=== PATIENT | female | born 1990 | race Caucasian/White ===

== ENCOUNTER 2023-10-06 09:02 | Outpatient (OUT) | payer OTHER, SELFPAY ==
[2023-10-06 09:36] LABS: Basophils Percent Auto 0.7 % (0.2-2.0); Eosinophils Percent Auto 0.7 % (0.9-7.0); Hematocrit 35.8 % (36.0-48.0); Hemoglobin 12.1 g/dL (12.0-16.0); Immature Granulocytes Abs Auto 0.01 10^3/uL (0.00-0.03); Immature Granulocytes Pct Auto 0.2 % (0.0-0.5); Lymphocytes Percent Auto 22.5 % (20.5-60.0); Mean Corpuscular HGB Conc 33.8 g/dL (29.9-35.2); Mean Corpuscular Hemoglobin 31.1 pg (26.7-34.0); Mean Platelet Volume 10.3 fL (9.5-13.5); Monocytes Absolute Auto 0.2 10^3/uL (0.3-0.8); Monocytes Percent Auto 4.4 % (1.7-12.0); Neutrophils Absolute Auto 3.1 10^3/uL (1.4-6.5); Neutrophils Percent Auto 71.5 % (43.0-75.0); Platelet Count 191 10^3/uL (150-450); Red Blood Count 3.89 10^6/uL (4.20-5.40); Red Cell Distribution Width 12.2 % (11.0-15.0); White Blood Count 4.3 10^3/uL (4.0-11.0)
[2023-10-06 10:09] LABS: Estimated Average Glucose 108 mg/dL; Glycohemoglobin A1C 5.4 % (4.5-6.2)
[2023-10-06 10:29] LABS: Alanine Aminotransferase 18 U/L (14-59); Albumin Globulin Ratio 1.2; Albumin Level 4.1 g/dL (3.4-5.0); Alkaline Phosphatase 65 U/L (46-116); Anion Gap 13.7; Aspartate Amino Transferase 13 U/L (15-37); BUN Creatinine Ratio 16.2; Bilirubin Total 0.5 mg/dL (0.2-1.0); Carbon Dioxide 24.8 mmol/L (21.0-32.0); Chloride 105 mmol/L (98-107); Chol HDL Ratio 2.4; Cholesterol 169 mg/dL (<=200); Estimated GFR (African America >60 (>=60); Estimated GFR (Non-African Ame 60 (>=60); Free T3 2.13 pg/mL (2.18-3.98); Globulin 3.5 g/dL; Glucose 91 mg/dL (74-106); HDL Cholesterol 70 mg/dL (40-60); Potassium 4.5 mmol/L (3.5-5.1); Sodium 139 mmol/L (136-145); Total Protein 7.6 g/dL (6.4-8.2); Triglycerides 32 mg/dL (<=150); VLDL CHOLESTEROL 6.4 mg/dL
[2023-10-08 12:07] LABS: Insulin 5.9 uIU/mL (2.6-24.9)
== END 2023-10-06 09:03 | disposition home or self-care (01) ==
PROVIDERS: PCP Nurse Practitioner Family; Visit Provider Nurse Practitioner Family
DX: Z00.00 Encounter for general adult medical examination without abnormal findings (principal)
CPT/HCPCS: 36415; 80053; 80061; 82306; 83036; 83525; 83540; 84436; 84443; 84481; 85025

== ENCOUNTER 2024-08-31 08:04 | Outpatient (OUT) | payer OTHER, SELFPAY ==
--- OUTSIDE RECORDS SUMMARY | 2024-08-31 08:07 | XMS_ITS | CCD ---
Author Organization [facility] Care Team Providers Care Billboard Erector Name Role Phone Christopher Ordaz Primary Care Physician JESUS THACKER Attending Unavailable KEDAR, JESUS Admitting Unavailable KEDAR, JESUS Primary Care Unavailable KEDAR, JESUS Consulting Unavailable JESUS THACKER Attending Unavailable KEDAR, JESUS Admitting Unavailable KEDAR, JESUS Primary Care Unavailable KEDAR, JESUS Consulting Unavailable KEDAR, JESUS Admitting Unavailable KEDAR, JESUS Primary Care Unavailable DR AILYN SWARTZ Consulting Unavailable KEDAR, JESUS Attending Unavailable JESUS THACKER Consulting Unavailable Medications Completed/Discontinued Medications Medication Drug Class(es) Dates Sig (Normalized) Sig (Original) levothyroxine sodium 0.05 mg oral tablet (1 source) l-Thyroxine Start: 09-28-2018 take 1 tablet by mouth once daily Synthroid 50 mcg Tab 50 microgram = 1 tab(s), Oral, Daily, Refills(s) 0 Start Date: 09/28/18 Status: Ordered Problems Active Problems Problem Classification Problem Date Documented Da te Episodic/Chronic Malaise and fatigue (4 sources) Other fatigue; Translations: [OTHER FATIGUE] Onset: 05-24-2022 Episodic Other complications of (1 source) Late entry into care 09-04-2009 Episodic Other skin disorders (1 source) Infection of sebaceous cyst 09-28-2018 Episodic Past or Other Problems Problem Classification Problem Date Documented Da te Episodic/Chronic Unclassified (1 source) Exposure to 2019 novel coronavirus; Translations: [Contact with and (suspected) exposure to COVID19] Results Test Name Value Interpretation Reference Range Facility US THYROIDon 05-25-2022 US THYROID EXAMINATION: US THYROID HISTORY: Fatigue COMPARISON: No relevant comparison available. TECHNIQUE: Sonographic images of the thyroid gland were obtained. FINDINGS: The right thyroid lobe is normal in size and contour with heterogeneous echotexture. No focal nodules. The right thyroid lobe measures 5.4 x 1.4 x 1.2 cm The thyroid isthmus measures 2.6 mm, heterogeneous. No focal nodule The left thyroid lobe is normal in size and contour with heterogeneous echotexture. No focal nodules. The left thyroid lobe measures 4.9 x 1.4 x 1.2 cm In the area the patient's pain left submandibular region, no focal abnormalities observed ultrasound IMPRESSION: Heterogeneous thyroid gland with no focal nodules No abnormality identified in the area of the patient's left submandibular pain Electronically authenticated by: AILYN SWARTZ Date: 2022-05-25 06:04 Normal [facility] INSULINon 05-23-2022 Insulin 7.5 uIU/mL Normal 2.6-24.9 [facility] Comment on above: Performed By: #### V ITB12, VITAD, IRON #### [facility] [address] [place] [address] Dr. Nakul Bush CBC AUTO DIFFon 05-21-2022 BASO # 0.0 103/ul Normal 0.0-0.1 [facility] Comment on above: Performed By: #### V ITB12, VITAD, IRON #### [facility] [address] [address] [address] Nakul Bush Basophils/100 WBC (Bld) 0.5 % Normal 0.2-2.0 [facility] Comment on above: Performed By: #### V ITB12, VITAD, IRON #### [facility] [address] [place] [address] Dr. Nakul Bush EO # 0.0 103/ul Normal 0.0-0.7 [facility] Comment on above: Performed By: #### V ITB12, VITAD, IRON #### [facility] [address] [address] [address] Nakul Bush Eosinophils/100 WBC (Bld) 0.8 % Critically low 0.9-7.0 [facility] Comment on above: Performed By: #### V ITB12, VITAD, IRON #### [facility] [address] [place] [address] Dr. Nakul Bush Erythrocyte distribution width (RBC) [Ratio] 13.6 % Normal 11.0-15.0 [facility] Comment on above: Performed By: #### V ITB12, VITAD, IRON #### [facility] [address] [place] [address] Dr. Nakul Bush Hematocrit (Bld) [Volume fraction] 32.2 % Critically low 36.0-48.0 [facility] Comment on above: Performed By: #### V ITB12, VITAD, IRON #### [facility] [address] [place] [address] Dr. Nakul Bush Hemoglobin (Bld) [Mass/Vol] 11.3 g/dL Critically low 12.0-16.0 [facility] Comment on above: Performed By: #### V ITB12, VITAD, IRON #### [facility] [address] [place] [address] Dr. Nakul Bush IG # 0.01 10e3/ul Normal 0.00-0.03 [facility] Comment on above: Performed By: #### V ITB12, VITAD, IRON #### [facility] [address] [place] [address] Dr. Nakul Bush IG % 0.3 % Normal 0.0-0.5 [facility] Comment on above: Performed By: #### V ITB12, VITAD, IRON #### [facility] [address] [place] [address] Dr. Nakul Bush LYMPH # 1.2 103/ul Normal 1.2-3.8 [facility] Comment on above: Performed By: #### V ITB12, VITAD, IRON #### [facility] [address] [place] [address] Dr. Nakul Bush Lymphocytes/100 WBC (Bld) 31.2 % Normal 20.5-60.0 [facility] Comment on above: Performed By: #### V ITB12, VITAD, IRON #### [facility] [address] [place] [address] Dr. Nakul Bush MANUAL DIFF REQ NO Normal [facility] Comment on above: Performed By: #### V ITB12, VITAD, IRON #### [facility] [address] [place] [address] Dr. Nakul Bush MCH (RBC) [Entitic mass] 29.4 pg Normal 26.7-34.0 [facility] Comment on above: Performed By: #### V ITB12, VITAD, IRON #### [facility] [address] [place] [address] Dr. Nakul Bush MCHC (RBC) [Mass/Vol] 35.1 g/dL Normal 29.9-35.2 [facility] Comment on above: Performed By: #### V ITB12, VITAD, IRON #### [facility] [address] [place] [address] Dr. Nakul Bush MCV (RBC) [Entitic vol] 83.6 fL Normal 81.0-99.0 [facility] Comment on above: Performed By: #### V ITB12, VITAD, IRON #### [facility] [address] [place] [address] Dr. Nakul Bush MONO # 0.3 103/ul Normal 0.3-0.8 [facility] Comment on above: Performed By: #### V ITB12, VITAD, IRON #### [facility] [address] [place] [address] Dr. Nakul Bush Monocytes/100 WBC (Bld) 7.3 % Normal 1.7-12.0 [facility] Comment on above: Performed By: #### V ITB12, VITAD, IRON #### [facility] [address] [place] [address] Dr. Nakul Bush NEUT # 2.2 103/ul Normal 1.4-6.5 [facility] Comment on above: Performed By: #### V ITB12, VITAD, IRON #### [facility] [address] [place] [address] Dr. Nakul Bush Neutrophils/100 WBC (Bld) 59.9 % Normal 43.0-75.0 [facility] Comment on above: Performed By: #### V ITB12, VITAD, IRON #### [facility] [address] [address] [address] Nakul Bush Platelet mean volume (Bld) [Entitic vol] 10.5 fL Normal 9.5-13.5 [facility] Comment on above: Performed By: #### V ITB12, VITAD, IRON #### [facility] [address] [address] [address] Nakul Bush PLT 178 103/ul Normal 150-450 [facility] Comment on above: Performed By: #### V ITB12, VITAD, IRON #### [facility] [address] [address] [address] Nakul Bush RBC 3.85 106/ul Critically low 4.20-5.40 [facility] Comment on above: Performed By: #### V ITB12, VITAD, IRON #### [facility] [address] [place] [address] Dr. Nakul Bush WBC 3.7 103/ul Critically low 4.0-11.0 [facility] Comment on above: Performed By: #### V ITB12, VITAD, IRON #### [facility] [address] [address] [address] Nakul Bush FREE THYROXINE INDEX T7on FTI 3.00 Normal 1.30-4.50 [facility] Comment on above: Performed By: #### V ITB12, VITAD, IRON #### [facility] [address] [address] [address] Nakul Bush T3U 37.0 % Normal 30.0-39.0 [facility] Comment on above: Performed By: #### V ITB12, VITAD, IRON #### [facility] [address] [address] [address] Nakul Bush T4 [Mass/Vol] 8.10 ug/dL Normal 4.80-13.90 [facility] Comment on above: Performed By: #### V ITB12, VITAD, IRON #### [facility] [address] [place] [address] Dr. Nakul Bush GLYCOHEMOGLOBIN A1Con 2022 ADA RECOMMENDATION SEE BELOW Normal [facility] Comment on above: Result Comment: ADA RECOMMENDED LIMIT 4.0 - 6.0 ADA THERAPEUTIC TARGET < 7.0 ACTION SUGGESTED > 7.0 Performed By: #### V ITB12, VITAD, IRON #### [facility] [address] [address] [address] Nakul Bush Glucose [Mass/Vol] 103 mg/dL Normal [facility] Comment on above: Performed By: #### V ITB12, VITAD, IRON #### [facility] [address] [address] [address] Nakul Bush HbA1c (Bld) [Mass fraction] 5.2 % Normal 4.5-6.2 [facility] Comment on above: Performed By: #### V ITB12, VITAD, IRON #### [facility] [address] [place] [address] Dr. Nakul Bush IRONon 05-21-2022 Iron [Mass/Vol] 37.0 ug/dL Critically low 50.0-170.0 [facility] Comment on above: Performed By: #### V ITB12, VITAD, IRON #### [facility] [address] [place] [address] Dr. Nakul Bush LIPID PROFILEon 05-21-2022 CHOL-HDL RATIO NORM SEE BELOW Normal [facility] Comment on above: Result Comment: 3.3 - 4.4 LOW RISK 4.4 - 7.1 AVERAGE RISK 7.1 - 11.0 MODERATE RISK >11.0 HIGH RISK Performed By: #### V ITB12, VITAD, IRON #### [facility] [address] [place] [address] Dr. Nakul Bush Cholesterol [Mass/Vol] 160 mg/dL Normal <=200 [facility] Comment on above: Performed By: #### V ITB12, VITAD, IRON #### [facility] [address] [address] [address] Nakul Bush Cholesterol in HDL [Mass/Vol] 73 mg/dL Critically high 40-60 [facility] Comment on above: Performed By: #### V ITB12, VITAD, IRON #### [facility] [address] [address] [address] Nakul Bush Cholesterol in LDL [Mass/Vol] 76.4 mg/dL Normal [facility] Comment on above: Performed By: #### V ITB12, VITAD, IRON #### [facility] [address] [address] [address] Nakul Bush Cholesterol.total/Ch olesterol in HDL [Mass ratio] 2.2 {ratio} Normal [facility] Comment on above: Performed By: #### V ITB12, VITAD, IRON #### [facility] [address] [address] [address] Nakul Bush HDL NORMAL > or = 60 mg/dl - LOW CARDIOVASCULAR RISK <40 mg/dl - HIGH CARDIOVASCULAR RISK Normal [facility] Comment on above: Performed By: #### V ITB12, VITAD, IRON #### [facility] [address] [address] [address] Nakul Bush LDL CALC NORMAL SEE BELOW Normal [facility] Comment on above: Result Comment: <100 mg/dl OPTIMAL 100 - 129 mg/dl NEAR OR ABOVE OPTIMAL 130 - 159 mg/dl BORDERLINE HIGH 160 - 189 mg/dl HIGH >190 mg/dl VERY HIGH Performed By: #### V ITB12, VITAD, IRON #### [facility] [address] [place] [address] Dr. Nakul Bush Triglyceride [Mass/Vol] 53 mg/dL Normal <=150 [facility] Comment on above: Performed By: #### V ITB12, VITAD, IRON #### [facility] [address] [address] [address] Nakul Bush VLDL CALC 10.6 mg/dL Normal [facility] Comment on above: Performed By: #### V ITB12, VITAD, IRON #### [facility] [address] [address] [address] Nakul Bush PROF 14(COMP METB)on 023 Albumin [Mass/Vol] 4.0 g/dL Normal 3.4-5.0 [facility] Comment on above: Performed By: #### T 7, CMP, LIPID, TSH #### [facility] [address] [address] [address] Nakul Bush Albumin/Globulin [Mass ratio] 1.1 {ratio} Normal [facility] Comment on above: Performed By: #### T 7, CMP, LIPID, TSH #### [facility] [address] [address] [address] Nakul Bush ALP [Catalytic activity/Vol] 69 U/L Normal 46-116 [facility] Comment on above: Performed By: #### T 7, CMP, LIPID, TSH #### [facility] [address] [place] [address] Dr. Nakul Bush ALT [Catalytic activity/Vol] 22 U/L Normal 14-59 [facility] Comment on above: Performed By: #### T 7, CMP, LIPID, TSH #### [facility] [address] [place] [address] Dr. Nakul Bush Anion gap [Moles/Vol] 14.9 mmol/L Normal [facility] Comment on above: Performed By: #### T 7, CMP, LIPID, TSH #### [facility] [address] [place] [address] Dr. Nakul Bush AST [Catalytic activity/Vol] 18 U/L Normal 15-37 [facility] Comment on above: Performed By: #### T 7, CMP, LIPID, TSH #### [facility] [address] [place] [address] Dr. Nakul Bush Bilirubin [Mass/Vol] 0.5 mg/dL Normal 0.2-1.0 [facility] Comment on above: Performed By: #### T 7, CMP, LIPID, TSH #### [facility] [address] [place] [address] Dr. Nakul Bush Calcium [Mass/Vol] 9.0 mg/dL Normal 8.5-10.1 [facility] Comment on above: Performed By: #### T 7, CMP, LIPID, TSH #### [facility] [address] [place] [address] Dr. Nakul Bush Chloride [Moles/Vol] 104 mmol/L Normal 98-107 [facility] Comment on above: Performed By: #### T 7, CMP, LIPID, TSH #### [facility] [address] [address] [address] Nakul Bush CO2 [Moles/Vol] 24.5 mmol/L Normal 21.0-32.0 [facility] Comment on above: Performed By: #### T 7, CMP, LIPID, TSH #### [facility] [address] [address] [address] Nakul Bush Creatinine [Mass/Vol] 0.99 mg/dL Normal 0.55-1.02 [facility] Comment on above: Performed By: #### T 7, CMP, LIPID, TSH #### [facility] [address] [address] [address] Nakul Bush EGFR-AF MALAYSIAN >60 Normal >=60 [facility] Comment on above: Performed By: #### T 7, CMP, LIPID, TSH #### [facility] [address] [address] [address] Nakul Bush EGFR-NON AF MALAYSIAN >60 Normal >=60 [facility] Comment on above: Performed By: #### T 7, CMP, LIPID, TSH #### [facility] [address] [address] [address] Nakul Bush Globulin (S) [Mass/Vol] 3.5 g/dL Normal [facility] Comment on above: Performed By: #### T 7, CMP, LIPID, TSH #### [facility] [address] [address] [address] Nakul Bush Glucose [Mass/Vol] 86 mg/dL Normal 74-106 [facility] Comment on above: Performed By: #### T 7, CMP, LIPID, TSH #### [facility] [address] [address] [address] Nakul Bush Potassium [Moles/Vol] 4.4 mmol/L Normal 3.5-5.1 [facility] Comment on above: Performed By: #### T 7, CMP, LIPID, TSH #### [facility] [address] [place] [address] Dr. Nakul Bush Protein [Mass/Vol] 7.5 g/dL Normal 6.4-8.2 [facility] Comment on above: Performed By: #### T 7, CMP, LIPID, TSH #### [facility] [address] [place] [address] Dr. Nakul Bush Sodium [Moles/Vol] 139 mmol/L Normal 136-145 [facility] Comment on above: Performed By: #### T 7, CMP, LIPID, TSH #### [facility] [address] [place] [address] Dr. Nakul Bush Urea nitrogen [Mass/Vol] 16.0 mg/dL Normal 7.0-18.0 [facility] Comment on above: Performed By: #### T 7, CMP, LIPID, TSH #### [facility] [address] [place] [address] Dr. Nakul Bush Urea nitrogen/Creatinine [Mass ratio] 16.2 mg/mg Normal [facility] Comment on above: Performed By: #### T 7, CMP, LIPID, TSH #### [facility] [address] [place] [address] Dr. Nakul Bush TSHon 05-21-2022 TSH 1.813 uIU/mL Normal 0.358-3.740 [facility] Comment on above: Performed By: #### V ITB12, VITAD, IRON #### [facility] [address] [place] [address] Dr. Nakul Bush VITAMIN B12on 05-21-2022 Cobalamin (Vitamin B12) [Mass/Vol] 830.0 pg/mL Normal 193.0-986.0 [facility] Comment on above: Performed By: #### V ITB12, VITAD, IRON #### [facility] [address] [place] [address] Dr. Nakul Bush VITAMIN D 25 OHon 05-21-2022 VIT D 25-OH 24.9 ng/mL Normal [facility] Comment on above: Performed By: #### V ITB12, VITAD, IRON #### [facility] [address] [place] [address] Dr. Nakul Bush VIT D RANGES SEE BELOW Normal [facility] Comment on above: Result Comment: <20 ng/mL Vit D deficient 20 - <30 ng/mL Vit D insufficient 30 - 100 ng/mL Vit D sufficient >100 ng/mL Potential Toxicity Performed By: #### V ITB12, VITAD, IRON #### [facility] [address] [place] [address] Dr. Nakul Bush CULTURE URINEon 08-23-2021 CULTURE URINE Isolate 1 Escherichia coli >100,000 cfu/ml of ORGANISM 1 Escherichia coli ANTIBIOTIC M.I.C RX STATUS Ampicillin 4 S F Ampicillin/Sulbacta m <=2 S F Piperacillin/Tazoba ctam <=4 S F Cefazolin <=4 S F Ceftazidime <=1 S F Ceftriaxone <=1 S F Ertapenem <=0.5 S F Imipenem <=0.25 S F Amikacin <=2 S F Gentamicin <=1 S F Tobramycin <=1 S F Ciprofloxacin <=0.25 S F Levofloxacin <=0.12 S F Nitrofurantoin <=16 S F Trimethoprim/Sulfam ethoxazole <=20 S F Normal [facility] Comment on above: Performed By: #### U RCX #### [facility] [address] [place] [address] Dr. Nakul Bush CBC AUTO DIFFon 08-21-2021 BASO # 0.0 103/ul Normal 0.0-0.1 [facility] Comment on above: Performed By: #### V ITB12, VITAD, IRON #### [facility] [address] [place] [address] Dr. Nakul Bush Basophils/100 WBC (Bld) 0.4 % Normal 0.2-2.0 [facility] Comment on above: Performed By: #### V ITB12, VITAD, IRON #### [facility] [address] [place] [address] Dr. Nakul Bush EO # 0.1 103/ul Normal 0.0-0.7 [facility] Comment on above: Performed By: #### V ITB12, VITAD, IRON #### [facility] [address] [place] [address] Dr. Nakul Bush Eosinophils/100 WBC (Bld) 1.4 % Normal 0.9-7.0 [facility] Comment on above: Performed By: #### V ITB12, VITAD, IRON #### [facility] [address] [place] [address] Dr. Nakul Bush Erythrocyte distribution width (RBC) [Ratio] 12.4 % Normal 11.0-15.0 [facility] Comment on above: Performed By: #### V ITB12, VITAD, IRON #### [facility] [address] [place] [address] Dr. Nakul Bush Hematocrit (Bld) [Volume fraction] 38.0 % Normal 36.0-48.0 [facility] Comment on above: Performed By: #### V ITB12, VITAD, IRON #### [facility] [address] [place] [address] Dr. Nakul Bush Hemoglobin (Bld) [Mass/Vol] 12.2 g/dL Normal 12.0-16.0 [facility] Comment on above: Performed By: #### V ITB12, VITAD, IRON #### [facility] [address] [place] [address] Dr. Nakul Bush IG # 0.01 10e3/ul Normal 0.00-0.03 [facility] Comment on above: Performed By: #### V ITB12, VITAD, IRON #### [facility] [address] [place] [address] Dr. Nakul Bush IG % 0.2 % Normal 0.0-0.5 [facility] Comment on above: Performed By: #### V ITB12, VITAD, IRON #### [facility] [address] [place] [address] Dr. Nakul Bush LYMPH # 1.7 103/ul Normal 1.2-3.8 [facility] Comment on above: Performed By: #### V ITB12, VITAD, IRON #### [facility] [address] [place] [address] Dr. Nakul Bush Lymphocytes/100 WBC (Bld) 33.2 % Normal 20.5-60.0 [facility] Comment on above: Performed By: #### V ITB12, VITAD, IRON #### [facility] [address] [place] [address] Dr. Nakul Bush MANUAL DIFF REQ NO Normal [facility] Comment on above: Performed By: #### V ITB12, VITAD, IRON #### [facility] [address] [place] [address] Dr. Nakul Bush MCH (RBC) [Entitic mass] 29.6 pg Normal 26.7-34.0 [facility] Comment on above: Performed By: #### V ITB12, VITAD, IRON #### [facility] [address] [place] [address] Dr. Nakul Bush MCHC (RBC) [Mass/Vol] 32.1 g/dL Normal 29.9-35.2 [facility] Comment on above: Performed By: #### V ITB12, VITAD, IRON #### [facility] [address] [place] [address] Dr. Nakul Bush MCV (RBC) [Entitic vol] 92.2 fL Normal 81.0-99.0 [facility] Comment on above: Performed By: #### V ITB12, VITAD, IRON #### [facility] [address] [place] [address] Dr. Nakul Bush MONO # 0.4 103/ul Normal 0.3-0.8 [facility] Comment on above: Performed By: #### V ITB12, VITAD, IRON #### [facility] [address] [place] [address] Dr. Nakul Bush Monocytes/100 WBC (Bld) 7.6 % Normal 1.7-12.0 [facility] Comment on above: Performed By: #### V ITB12, VITAD, IRON #### [facility] [address] [place] [address] Dr. Nakul Bush NEUT # 2.9 103/ul Normal 1.4-6.5 [facility] Comment on above: Performed By: #### V ITB12, VITAD, IRON #### [facility] [address] [place] [address] Dr. Nakul Bush Neutrophils/100 WBC (Bld) 57.2 % Normal 43.0-75.0 [facility] Comment on above: Performed By: #### V ITB12, VITAD, IRON #### [facility] [address] [place] [address] Dr. Nakul Bush Platelet mean volume (Bld) [Entitic vol] 10.9 fL Normal 9.5-13.5 [facility] Comment on above: Performed By: #### V ITB12, VITAD, IRON #### [facility] [address] [place] [address] Dr. Nakul Bush PLT 220 103/ul Normal 150-450 [facility] Comment on above: Performed By: #### V ITB12, VITAD, IRON #### [facility] [address] [place] [address] Dr. Nakul Bush RBC 4.12 106/ul Critically low 4.20-5.40 [facility] Comment on above: Performed By: #### V ITB12, VITAD, IRON #### [facility] [address] [place] [address] Dr. Nakul Bush WBC 5.1 103/ul Normal 4.0-11.0 [facility] Comment on above: Performed By: #### V ITB12, VITAD, IRON #### [facility] [address] [place] [address] Dr. Nakul Bush GLYCOHEMOGLOBIN A1Con 2021 ADA RECOMMENDATION SEE BELOW Normal [facility] Comment on above: Result Comment: ADA RECOMMENDED LIMIT 4.0 - 6.0 ADA THERAPEUTIC TARGET < 7.0 ACTION SUGGESTED > 7.0 Performed By: #### A 1C #### [facility] [address] [place] [address] Dr. Nakul Bush Glucose [Mass/Vol] 105 mg/dL Normal [facility] Comment on above: Performed By: #### A 1C #### [facility] [address] [address] [address] Nakul Bush HbA1c (Bld) [Mass fraction] 5.3 % Normal 4.5-6.2 [facility] Comment on above: Performed By: #### A 1C #### [facility] [address] [address] [address] Nakul Bush LIPID PROFILEon 08-21-2021 CHOL-HDL RATIO NORM SEE BELOW Normal [facility] Comment on above: Result Comment: 3.3 - 4.4 LOW RISK 4.4 - 7.1 AVERAGE RISK 7.1 - 11.0 MODERATE RISK >11.0 HIGH RISK Performed By: #### C MP, TSH, LIPID #### [facility] [address] [address] [address] Nakul Bush Cholesterol [Mass/Vol] 167 mg/dL Normal <=200 [facility] Comment on above: Performed By: #### C MP, TSH, LIPID #### [facility] [address] [address] [address] Nakul Bush Cholesterol in HDL [Mass/Vol] 63 mg/dL Critically high 40-60 [facility] Comment on above: Performed By: #### C MP, TSH, LIPID #### [facility] [address] [address] [address] Nakul Bush Cholesterol in LDL [Mass/Vol] 87.4 mg/dL Normal [facility] Comment on above: Performed By: #### C MP, TSH, LIPID #### [facility] [address] [address] [address] Nakul Bush Cholesterol.total/Ch olesterol in HDL [Mass ratio] 2.7 {ratio} Normal [facility] Comment on above: Performed By: #### C MP, TSH, LIPID #### [facility] [address] [place] [address] Dr[address] Nakul Bush HDL NORMAL > or = 60 mg/dl - LOW CARDIOVASCULAR RISK <40 mg/dl - HIGH CARDIOVASCULAR RISK Normal [facility] Comment on above: Performed By: #### C MP, TSH, LIPID #### [facility] [address] [address] [address] Nakul Bush LDL CALC NORMAL SEE BELOW Normal [facility] Comment on above: Result Comment: <100 mg/dl OPTIMAL 100 - 129 mg/dl NEAR OR ABOVE OPTIMAL 130 - 159 mg/dl BORDERLINE HIGH 160 - 189 mg/dl HIGH >190 mg/dl VERY HIGH Performed By: #### C MP, TSH, LIPID #### [facility] [address] [address] [address] Nakul Bush Triglyceride [Mass/Vol] 83 mg/dL Normal <=150 [facility] Comment on above: Performed By: #### C MP, TSH, LIPID #### [facility] [address] [place] [address] Dr. Nakul Bush VLDL CALC 16.6 mg/dL Normal [facility] Comment on above: Performed By: #### C MP, TSH, LIPID #### [facility] [address] [address] [address] Nakul Bush PROF 14(COMP METB)on 022 Albumin [Mass/Vol] 4.0 g/dL Normal 3.4-5.0 [facility] Comment on above: Performed By: #### C MP, TSH, LIPID #### [facility] [address] [address] [address] Nakul Bush Albumin/Globulin [Mass ratio] 1.1 {ratio} Normal [facility] Comment on above: Performed By: #### C MP, TSH, LIPID #### [facility] [address] [address] [address] Nakul Bush ALP [Catalytic activity/Vol] 70 U/L Normal 46-116 [facility] Comment on above: Performed By: #### C MP, TSH, LIPID #### [facility] [address] [address] [address] Nakul Bush ALT [Catalytic activity/Vol] 19 U/L Normal 14-59 [facility] Comment on above: Performed By: #### C MP, TSH, LIPID #### [facility] [address] [address] [address] Nakul Bush Anion gap [Moles/Vol] 13.0 mmol/L Normal [facility] Comment on above: Performed By: #### C MP, TSH, LIPID #### [facility] [address] [address] [address] Nakul Bush AST [Catalytic activity/Vol] 15 U/L Normal 15-37 [facility] Comment on above: Performed By: #### C MP, TSH, LIPID #### [facility] [address] [address] [address] Nakul Bush Bilirubin [Mass/Vol] 0.3 mg/dL Normal 0.2-1.0 [facility] Comment on above: Performed By: #### C MP, TSH, LIPID #### [facility] [address] [place] [address] Dr. Nakul Bush Calcium [Mass/Vol] 8.4 mg/dL Critically low 8.5-10.1 [facility] Comment on above: Performed By: #### C MP, TSH, LIPID #### [facility] [address] [address] [address] Nakul Bush Chloride [Moles/Vol] 103 mmol/L Normal 98-107 [facility] Comment on above: Performed By: #### C MP, TSH, LIPID #### [facility] [address] [address] [address] Nakul Bush CO2 [Moles/Vol] 24.5 mmol/L Normal 21.0-32.0 [facility] Comment on above: Performed By: #### C MP, TSH, LIPID #### [facility] [address] [place] [address] Dr. Nakul Bush Creatinine [Mass/Vol] 1.04 mg/dL Critically high 0.55-1.02 [facility] Comment on above: Performed By: #### C MP, TSH, LIPID #### [facility] [address] [address] [address] Nakul Bush EGFR-AF MALAYSIAN >60 Normal >=60 [facility] Comment on above: Performed By: #### C MP, TSH, LIPID #### [facility] [address] [address] [address] Nakul Bush EGFR-NON AF MALAYSIAN >60 Normal >=60 [facility] Comment on above: Performed By: #### C MP, TSH, LIPID #### [facility] [address] [address] [address] Nakul Bush Globulin (S) [Mass/Vol] 3.6 g/dL Normal [facility] Comment on above: Performed By: #### C MP, TSH, LIPID #### [facility] [address] [address] [address] Nakul Bush Glucose [Mass/Vol] 87 mg/dL Normal 74-106 [facility] Comment on above: Performed By: #### C MP, TSH, LIPID #### [facility] [address] [place] [address] Dr. Nakul Bush Potassium [Moles/Vol] 4.5 mmol/L Normal 3.5-5.1 [facility] Comment on above: Performed By: #### C MP, TSH, LIPID #### [facility] [address] [address] [address] Nakul Bush Protein [Mass/Vol] 7.6 g/dL Normal 6.1-8.2 [facility] Comment on above: Performed By: #### C MP, TSH, LIPID #### [facility] [address] [address] [address] Nakul Bush Sodium [Moles/Vol] 136 mmol/L Normal 136-145 [facility] Comment on above: Performed By: #### C MP, TSH, LIPID #### [facility] [address] [address] [address] Nakul Bush Urea nitrogen [Mass/Vol] 21.0 mg/dL Critically high 7.0-18.0 [facility] Comment on above: Performed By: #### C MP, TSH, LIPID #### [facility] [address] [address] [address] Nakul Bush Urea nitrogen/Creatinine [Mass ratio] 20.2 mg/mg Normal [facility] Comment on above: Performed By: #### C MP, TSH, LIPID #### [facility] [address] [place] [address] Dr. Nakul Bush TSHon 08-21-2021 TSH 3.508 uIU/mL Normal 0.470-4.[address] [facility] Comment on above: Performed By: #### C MP, TSH, LIPID #### [facility] [address] [place] [address] Dr. Nakul Bush TSH RANGE SEE BELOW Normal [facility] Comment on above: Result Comment: <0.3 4 UIU/ml HYPERTHYROID 0.34-5.60 UIU/ml EUTHYROID >5.60 UIU/ml HYPOTHYROID Performed By: #### C MP, TSH, LIPID #### [facility] [address] [place] [address] Dr. Nakul Bush UA RANDOM W/MICROSCOPICon BACTERIA LARGE Abnormal NONE SEEN [facility] Comment on above: Performed By: #### V ITB12, VITAD, IRON #### [facility] [address] [place] [address] Dr. Nakul Bush Bilirubin Ql (U) Negative Normal NEGATIVE [facility] Comment on above: Performed By: #### V ITB12, VITAD, IRON #### [facility] [address] [place] [address] Dr. Nakul Bush CAST NONE SEEN Normal NONE SEEN [facility] Comment on above: Performed By: #### V ITB12, VITAD, IRON #### [facility] [address] [place] [address] Dr. Nakul Bush Clarity (U) CLEAR Normal CLEAR [facility] Comment on above: Performed By: #### V ITB12, VITAD, IRON #### [facility] [address] [place] [address] Dr. Nakul Bush Color (U) LT. YELLOW Normal YELLOW [facility] Comment on above: Performed By: #### V ITB12, VITAD, IRON #### [facility] [address] [place] [address] Dr. Nakul Bush Crystals LM Nom (Urine sed) NONE SEEN Normal NONE SEEN [facility] Comment on above: Performed By: #### V ITB12, VITAD, IRON #### [facility] [address] [address] [address] Nakul Bush Epithelial cells LM Ql (Urine sed) FEW Abnormal NONE SEEN /RARE [facility] Comment on above: Performed By: #### V ITB12, VITAD, IRON #### [facility] [address] [address] [address] Nakul Bush Glucose Ql (U) Negative Normal NEGATIVE [facility] Comment on above: Performed By: #### V ITB12, VITAD, IRON #### [facility] [address] [place] [address] Dr. Nakul Bush Hemoglobin Ql (U) Negative Normal NEGATIVE [facility] Comment on above: Performed By: #### V ITB12, VITAD, IRON #### [facility] [address] [address] [address] Nakul Bush Ketones Ql (U) Negative Normal NEGATIVE [facility] Comment on above: Performed By: #### V ITB12, VITAD, IRON #### [facility] [address] [place] [address] Dr. Nakul Bush LEUKOCYTES TRACE Abnormal NEGATIVE [facility] Comment on above: Performed By: #### V ITB12, VITAD, IRON #### [facility] [address] [place] [address] Dr. Nakul Bush MUCOUS TRACE Abnormal NONE SEEN [facility] Comment on above: Performed By: #### V ITB12, VITAD, IRON #### [facility] [address] [address] [address] Nakul Bush Nitrite Ql (U) Positive Abnormal NEGATIVE [facility] Comment on above: Performed By: #### V ITB12, VITAD, IRON #### [facility] [address] [place] [address] Dr. Nakul Bush pH (U) 6.5 [pH] Normal 5-9 [facility] Comment on above: Performed By: #### V ITB12, VITAD, IRON #### [facility] [address] [address] [address] Nakul Bush RBC 0-2 Normal 0-2 [facility] Comment on above: Performed By: #### V ITB12, VITAD, IRON #### [facility] [address] [address] [address] Nakul Bush SPEC GRAVITY 1.010 Normal 1.005-<=1.025 [facility] Comment on above: Performed By: #### V ITB12, VITAD, IRON #### [facility] [address] [address] [address] Nakul Bush UA PROTEIN Negative Normal NEGATIVE/ TRACE [facility] Comment on above: Performed By: #### V ITB12, VITAD, IRON #### [facility] [address] [address] [address] Nakul Bush Urobilinogen Qn (U) 0.2 {Shakir'U}/dL Normal 0.2 - 1. 0 [facility] Comment on above: Performed By: #### V ITB12, VITAD, IRON #### [facility] [address] [address] [address] Nakul Bush WBC 2-5 Abnormal NONE SEEN [facility] Comment on above: Performed By: #### V ITB12, VITAD, IRON #### [facility] [address] [address] [address] Nakul Bush Coding Summary.on 05-18-2021 Coding Summary. CD:[id number] KSr6xWe+PGhlYWQ+PE1 EAAKyQ35mfEChnF2GD6 uISR9YFYVPCGCGDB7NM K9fkQM6NIamQ3PyqsVg DwgmbDOzKQ91QLn0OEE 8pYqqMAdgsT7xrPMpP6 m3RlPpDL83sF35SKdpF JUdBsQ8RcBtqyasiQQk S4osNlJzaIBgHjg+PHR hYmxlIHdpZHRoPScxMD AmNgBduEfaKP4kRh0pL GVyLWNvbGxhcHNlOiBj g1qoXAYtFSriXK8tfLf fG8UyfXJ3SSLom1k0Ee 48dHI+CLHsRXO3rAalZ Yoqt151KbOmg1juJNH3 nLRrJBacGTU5P16zn3T 5FSHfMHDiJPV4eOZ9sI 4ouPtlvqmdS2ElnTXyR dX7LSD9bYKzyI8ojXqt eizajS3wEmo+A27IPF9 BIQVQBT6JEri4J6ZzBx wvdHI+KR50QPQhPQ93q YUuhTFjq1erlEd5DwLi OCGmRWT5yPslIXhuc6K wLZEdX81xyNTxi7J3ZW CivGdykBKqBrGwkIU6q W5mRQxjnnoql6tvxuyd Ltxef1gtuh01eA28X33 bTPrlERIwITM2GGHlUS DgoAvzkk6pnI0yYk7+I Wksx5xim5mvuDz7ZuDw XWWncmMwpOlfGEO0g3Z nZo98G6QitIfkb9NrOf e1go58rFWif4J9mYV3R ZcqSFEymP0wBDybMgW9 JRDxFrPmqP08wEYnTDp kWs9cdWznoRylIW1yOY XszielYFOefH1iGUNyv HFfdTrxXF0zRGPidhds f810XuJvJZC1EQSpoGQ sL4HwsD7lCjPhIVOwYI VgO2XwkIDxKIxtP794T BanAyO6OZHwxcZsR6Ea AVSdsYpbLjR0w1Z1Mu6 Gs6MazcmqTOU4EBebKK GaFdJ9QwGwAeM3M1YdX ih6UZVdpLcuBX2aR1Oz VQXctneegazryHF1YQJ iDHGaaT01tLXzEYqpNq 3sf7C1l242MRUhWTRie Z77Gi6jnTefUUOypUKS lV8fbanak5zxcoccMhV nHZPeAYk6KEe1UZOduL oiWcZnNIZ9QnO0JCI8a TPtgT9nwGmfdngutW1t Oyc+D77fvF1qSOM2QDI 6pvcnNDMgvoEoUA21MA 96U5HxBfnhnWNdeVL+P XDoaaJoqQwsRM4bLnEh a2gfz5AcDCjyP5BuCKT lLQkxVhc5IWTdBWK3cN B5nU8vFHQqIFkct9F7l VW8P8XjcyMais5xk3hq WQFzTRxgS79naORzi2Z 5UHRzuAV1ZSUjxAvyIh JvcK63Wjo+PGNvbGdyb 2DoVjqqr5wzo8mpiOz7 IjMwJSIgdmFsaWduPSJ 2j2WpEq37Z56uNXxiIF RoPSIxNSUiIHZhbGlnb a6nmA4hJj3+PGNvbCB3 rWV9jV4zACMmDnC7SMo xZ297ClEpwRFaWmqdo1 dho7byzLq0ZvBaRFKgr hSgcBlnFRV9j8OcCl21 G19jJYazNGOpRGLfLJH mZGNuzCnxfz3orQ7uWv 8+NE6oj4ewlg62eX77i HI+WWVmQYN4nJitVWez XWJfwS3vHLssHxI1RTY zLwGdbN67iKCgBYhxLm 5tqNbvgRqlZB2ySAPna fgeg088KtPzu5qjVASg iCFjUEemNLY0T03li6E 7BENaXCUfQXV8gLF1xL 1hbGlnbjogbGVmdDsgd iWfcJkwWCgmWMluQ969 IHRvcDsnPlBhdGllbnQ yIgWeIMi4L7EqRwp3DK PkgFfxOR1lhSHfWCyxM x3wmCzdvEgnCB6xHWAd cbsov470VoRvq4daYYF asAJmPEnpTUO3B06yy0 Z2NBCsTOEfITY8pWR8l J3mnYedfoncyRSncMbl lgHnxXsgCRkbQJizF32 6IHRvcDsnPkJpcnRoIE SueDK1VF41LR35kQJuo 4O6hZD9D6NxBYFuyzzh kuijpBW0JKCaRLFjmD2 3Gt7lnSgsBn2oOZMuDQ T5ZBHecICbR9WogN7mE iLlWFEuJTUyF0MtlSNe EYgbM248PUvbZuP3RJM bytJkU5IrGLIfaIglTh U7j3Y5Df4DS5L4LS57B S96xGFzf3S6dFT1C9Bn FMCyreoizmuyqUS9QYH yMUFqlV74Ll9ujYzyOz 5vNANrRTF2HHNfhEDkX 5LweU1rNpWwFXAaFGPz G1FgqUIyBEobI127URr sJzW0SXTzpmCtS0MdDO TvxNqtSdS4t4N9Nn3YB Ia2HD04EM30wSSug0S9 tLH0C9HcICAwntedbhx ecLV3HLWbPTYhfV50Fb 5uiYwcFq9rXZQpUGL5V FTywOLmP5OdxS1jPvQo CRFyXDUpQ2OndIPwVKr fL817CPzyGeE9JCIvia JcX5WjNUOnbUxtApR5i 4R9Iz1KRZQtBU03FPB3 yGH3GO21GM60W5CoEvm vdGFibGU+PHRhYmxlIH dpZHRoPScxMDAlJyBzd YieQJ1pGp3tHNMyGPQt dWizgIFwSkEkt3qnWBQ rYAwpSS5ziAjlW5SujR I9ZDNhn2e3Ez80T35dK 3JvdXA+FPEovCP4xTR5 gL4pPoKwLxD2WJbaH74 1UsQfgARiWngct1dir6 zdqFs1QsR5NZCfjeQiy QqlWKI3c5CaXn45Z83h IHdpZHRoPSIxNSUiIHZ rcCkxtu8ixG7iPp9+PG ParUA1bOT5aD7hXkNfX sG8JRqdS868HiUzoOQm Yolrz5ruv1vmkRg1RaL yCOWgnwBwcAqxWLN7t9 FfTk97P2LmgTynb9ZxR aw2qb05lEIrl7D2pFY7 I0FqYTVwkgmwqWFifJo dJY3qDOOukoasBQBwqB 8yUVPxF1u3DbIyEuV2G KpuL1GhqcR5MFQyjBOv SHcoVLZ9M64op5Q1CDF xWGAsNGR0kUV5qI1drI lnbjogbGVmdDsgdmVyd AorLTkvWVgbI744CPFi kKdbGZGkcW3rZUAkoEX mhCnlMR5lSQHhedjrEp BOVSpBQEcgZCWCD0MlL jwvdGQ+ZIMhQJD4jDey GEzuNMJitG2bAFWuL4b 8XuXoYxM7IDoiS7TiVF YujfhfGl51xY3aDqAjE wL3AMvnT3QkyxA1ZIGp sTImPBrcFIQ1P37jp0V 0CSKzVLYkYZQ6rGS0nU 1hbGlnbjogbGVmdDsgd wEunRowIDyvGYimN064 CHPvhXeuOrD8ZvIySkW 0YGj6L1VmWun7PYCqhZ pmPC6nxOTgCSimUu3jd LbzaKbiSJ9eBVVnavki SSOmqO2lFFDnxHVtfMm uBA1rXKVjojvvh985Ml YbZGS0CNIelVNgB4Qwn T2wIjNsOXJeOGIiG6Ng bFAkXHwhP865BMbgPrB 9CPBorfCrZ3TsMSJwdI cnCoJ2y5J5Tq4lSjJSA WFyczwvdGQ+PHRkIHN0 tZnhPOcuVAQduV0nETO jM8u2CpFoQkY0WJuqH3 RwLFFdbahwHv59jF4eP gTtYuU5AHexK4LoqeR9 ORCblGYaSYovKYP1Y94 mf3I8ASGnDZPdCJS4aH L7xL4jpDhddpvsrNKgl DsgdmVydGljYWwtYWxp E451CTIkwTodLkKoqUS sZTwvdGQ+SBCgJHH3hX alAEbtGOMclX8sLNMnL 5z8UaIkUaR6NNojH5Ar QROqpycvEv71tB3jUaB sJhZ1DThgZ9WnilY1FL JmfCNkJRplIPP1V48ib 3I3IZQeVCOxEGF4uAC7 eS4caFlapvwguDCrxUj gdmVydGljYWwtYWxpZ2 63BPHyaEhuVkHoQ7Hdm mluZzwvdGQ+DY90cp92 E0ZlRseqOkx3SKLdEHR 0yDS9bE4yFKAwRDdpa4 P7eII2F0HewsIrln0lo 8mpLKFtBVoxS22otLZo y0L6OLBjsGH7JYTwmWr xWzFjxX37Tbe+PGNvbG mez1PdCxbcl3nzw7vua Kk5RvLdQVMcguTlwNdw HLI2b3UzKd78C38gBRc pZHRoPSIzMCUiIHZhbG pbbk4qkX0oPs1+PGNvb HJ7rUS5oL8jAtRfErD2 AUkxG178OxUvdNDbKth au0rzh5kckNw9SrVnMK TcxvVifRxhECA4l8RmH j59M4AylAoth1UvXyt6 ck49vKXsk2S8fCM6P7G hZGRpbmctbGVmdDogMC 3qZOFxsavuFPTcgA1gW LXmY0q5OzReFaG6QKaa E1IjliQ3UKZvyQLpSWG kuDLAoI0gjjrdw0nykd cvNzHoYVXgMQi8NAp9T CAjjAdsJcAnFAQ7JkQ2 GQE1uLMurH4udOyrefq pgS1eVsw+CMo5q1kdzD ZqTA3ebEM4GE82BV46t RKvo5L6uBD6T0KoPSSj nzrfmxzesBQ5QFTnYKN nlQ07Fn5cpYfnQs1xIT IpIUW8NZFrfZMxV2Oho I1oUxMbZCIkRGLiJ5Mp eSWlTMfzK331YHpvJnQ 7SFCftlVrV7IvNBJzvU lbMpH9j1Q6Ex8KKD65G J16IZ90eMNww1S9aTC7 F3EcBBYhwdhdoposeHK 2GUEwWBWrkM45Gi0psZ fuSy0jILIaCZC8DDOpx JBdV9FybW7hBtErWJQm GETgT1UgrNDnRAyeO33 6TJqePyZ5GRNwbxYrS5 PsBBJasDliMmL7z9W6U d6FFh84FB32KE94nHFu k1D9cVD9U5LoTODgfvf uqopwjPJ6UIPoJYSndB 56Iz8ugCuyQy0vYHXfT FF8YHDhkTRpN3BqjC4q VkJyDINbOAYoT0PpxRS kLVsuH576WCjfCnU6TN BrrfXdH2TkNOKnjBhoJ tB5y4H9Om1HXSkgtrl2 Z3MgIiykzTY+HA70GZK eBI68bAVmiCXpi4jjgK x2VnCjDTEaPKT9dYaiE Ivnx7QeNKTuO23lkCPg c2U6 (more content not included)... Normal [facility] Priority Order-rFanko 2021 Priority Order-STAT Comment Invalid Interpretation Code [facility] Comment on above: Result Comment: Rece ived Performed at: [facility] [place] [address] [place], [place] [id number] PhD Natalio Crouch Performed By: #### S ARS-CoV-2, ANNA, [id number] #### [facility] [address] [place] [address] SARS-CoV-2, NAAon 05-18-2021 SARS-CoV-2 (COVID-19) RNA ANNA+probe Ql (Resp) Not detected Invalid Interpretation Code Not Detected [facility] Comment on above: Result Comment: This nucleic acid amplification test was developed and its performance characteristics determined by [employer]. Nucleic acid amplification tests include RT-PCR and TMA. This test has not been FDA cleared or approved. This test has been authorized by FDA under an Emergency Use Authorization (EUA). This test is only authorized for the duration of time the declaration that circumstances exist justifying the authorization of the emergency use of in vitro diagnostic tests for detection of SARS-CoV-2 virus and/or diagnosis of COVID-19 infection under section 564(b)(1) of the Act, 21 U.S.C. 360bbb-3(b) (1), unless the authorization is terminated or revoked sooner. When diagnostic testing is negative, the possibility of a false negative result should be considered in the context of a patient's recent exposures and the presence of clinical signs and symptoms consistent with COVID-19. An individual without symptoms of COVID-19 and who is not shedding SARS-CoV-2 virus would expect to have a negative (not detected) result in this assay. Performed at: [address] [id number] PhD Natalio Crouch Performed By: #### S ARS-CoV-2, ANNA, [id number] #### [facility] [address] [place] [address] Consent for Treatmenton 04-25 Consent for Treatment [id number] Normal [facility] Testing Ordered By: Generated Domain[employer] on 05-17-2021 SARS-CoV-2 (COVID-19) RNA ANNA+probe Ql (Resp) Not detected Invalid Interpretation Code Not Detected [facility] [employer] Comment on above: Result Comment: This nucleic acid amplification test was developed and its performance characteristics determined by [employer]. Nucleic acid amplification tests include RT-PCR and TMA. This test has not been FDA cleared or approved. This test has been authorized by FDA under an Emergency Use Authorization (EUA). This test is only authorized for the duration of time the declaration that circumstances exist justifying the authorization of the emergency use of in vitro diagnostic tests for detection of SARS-CoV-2 virus and/or diagnosis of COVID-19 infection under section 564(b)(1) of the Act, 21 U.S.C. 360bbb-3(b) (1), unless the authorization is terminated or revoked sooner. When diagnostic testing is negative, the possibility of a false negative result should be considered in the context of a patient's recent exposures and the presence of clinical signs and symptoms consistent with COVID-19. An individual without symptoms of COVID-19 and who is not shedding SARS-CoV-2 virus would expect to have a negative (not detected) result in this assay. Performed at: [address] [id number] PhD Natalio Crouch Encounters Encounter Date Encounter Type Care Provider Facility Start: 05-24-2022 End: 05-25-2022 ambulatory JESUS THACKER Facility:[facility] Start: 05-24-2022 Encounter for genera l adult medical examination without abnormal findings JESUS THACKER [facility] Start: 05-21-2022 End: 05-22-2022 ambulatory JESUS THACKER Facility:[facility] Start: 05-21-2022 End: 05-22-2022 Encounter for general adult medical examination without abnormal findings JESUS THACKER Facility:[facility] Start: 08-21-2021 End: 08-22-2021 ambulatory JESUS THACKER Facility:[facility] Start: 05-12-2021 End: 08-15-2021 Patient encounter procedure JESUS THACKER [facility] Immunizations Immunization Date Immunization Notes Care Provider Harry ko 10-06-2009 tetanus toxoid, redu han diphtheria toxoid, and acellular pertussis vaccine, adsorbed JESUS THACKER [facility] Payers Date Payer Category Payer Unknown [id number] 2.16.84 [id number] 1988 Unknown [id number] 2.16.84 [id number] 1988 Unknown [id number] 2.16.84 [id number] 1959 Unknown [id number] 1959 Unknown [id number] Social History Date Type Detail Facility Start: 09-28-2018 Tobacco smoking status Never s moked tobacco (finding) [facility] Sex Assigned At Female [facility] Evaluation + Plan note Note Date & Type Note Facility Evaluation + Plan note No data available for this section [facility] Hospital Discharge instructions Note Date & Type Note Facility Hospital Discharge instructions No data available for this section [facility] Summary Purpose Family History No Family History Records FoundNo Family History Records Found Advance Directives No Advanced Directives Records FoundNo Advanced Directives Records Found Additional Source Comments INFORMATION SOURCE (unrecogn ized section and content) DATE CREATED AUTHOR 08/16/2021 [facility] DATE CREATED AUTHOR AUTHOR'S ORGANIZ ATION 05/27/[address] [facility] FOR RECORDS PERTAINING TO PATIENTS WHO ARE OR HAVE BEEN ENROLLED IN A CHEMICAL DEPENDENCY/SUBSTANCEABUSE PROGRAM, SOME INFORMATION MAY BE OMITTED. This clinical summary was aggregated from multiple sources. Caution should be exercised in using it in the provision of clinical care. This summary normalizes information from multiple sources, and as a consequence, information in this document may materially change the coding, format and clinical context of patient data. In addition, data may be omitted in some cases. CLINICAL DECISIONS SHOULD BE BASED ON THE PRIMARY CLINICAL RECORDS. [employer] provides no warranty or guarantee of the accuracy or completeness of information in this document.
[2024-08-31 08:21] LABS: Basophils Percent Auto 0.5 % (0.2-2.0); Eosinophils Absolute Auto 0.1 10^3/uL (0.0-0.7); Eosinophils Percent Auto 1.1 % (0.9-7.0); Hemoglobin 12.6 g/dL (12.0-16.0); Immature Granulocytes Abs Auto 0.01 10^3/uL (0.00-0.03); Immature Granulocytes Pct Auto 0.2 % (0.0-0.5); Lymphocytes Absolute Auto 1.2 10^3/uL (1.2-3.8); Lymphocytes Percent Auto 26.4 % (20.5-60.0); Mean Corpuscular HGB Conc 33.2 g/dL (29.9-35.2); Mean Corpuscular Hemoglobin 30.7 pg (26.7-34.0); Mean Corpuscular Volume 92.7 fL (81.0-99.0); Mean Platelet Volume 10.7 fL (9.5-13.5); Monocytes Absolute Auto 0.3 10^3/uL (0.3-0.8); Monocytes Percent Auto 6.4 % (1.7-12.0); Neutrophils Absolute Auto 2.9 10^3/uL (1.4-6.5); Neutrophils Percent Auto 65.4 % (43.0-75.0); Platelet Count 161 10^3/uL (150-450); Red Cell Distribution Width 12.3 % (11.0-15.0); White Blood Count 4.4 10^3/uL (4.0-11.0)
[2024-08-31 08:28] LABS: Estimated Average Glucose 114 mg/dL; Glycohemoglobin A1C 5.6 % (4.5-6.2)
[2024-08-31 09:05] LABS: Alanine Aminotransferase 24 U/L (14-59); Albumin Globulin Ratio 1.2; Albumin Level 4.1 g/dL (3.4-5.0); Alkaline Phosphatase 71 U/L (46-116); Anion Gap 9.9; Aspartate Amino Transferase 18 U/L (15-37); BUN Creatinine Ratio 14.3; Bilirubin Total 0.9 mg/dL (0.2-1.0); Calcium 9.2 mg/dL (8.5-10.1); Carbon Dioxide 28.4 mmol/L (21.0-32.0); Chloride 102 mmol/L (98-107); Chol HDL Ratio 2.1; Cholesterol 153 mg/dL (<=200); Estimated GFR (African America >60 (>=60 mL/min/1.73m^2); Estimated GFR (Non-African Ame 59 (>=60 mL/min/1.73m^2); Free T3 2.34 pg/mL (2.18-3.98); Globulin 3.4 g/dL; Glucose 81 mg/dL (74-106); HDL Cholesterol 73 mg/dL (40-60); Potassium 4.3 mmol/L (3.5-5.1); Sodium 136 mmol/L (136-145); Thyroid Stimulating Hormone 2.526 uIU/mL (0.358-3.740); Total Protein 7.5 g/dL (6.4-8.2); Triglycerides 47 mg/dL (<=150); VLDL CHOLESTEROL 9.4 mg/dL
== END 2024-08-31 08:05 | disposition home or self-care (01) ==
LOC: LAB 08:05
PROVIDERS: PCP Nurse Practitioner Family; Visit Provider Nurse Practitioner Family
DX: Z00.00 Encounter for general adult medical examination without abnormal findings (principal)
CPT/HCPCS: 36415; 80053; 80061; 82306; 83036; 83525; 83540; 84436; 84443; 84481; 85025